=== PATIENT | male | born 1990 | race Caucasian/White ===

== ENCOUNTER → 2016-03-13 | Outpatient (CLI) | payer BC ==
--- NOTE | 2016-03-13 17:01 | DX ---
Left Foot - 3 views Indication: Pain. Technique: AP, oblique, and lateral views. Comparison: None Findings: The bones are anatomically aligned. No fracture or periosteal reaction to suggest stress re sponse. Joint spaces are well preserved. No marginal osteophytes or erosions. Impression: Negative. No acute fracture or stress response.
--- NOTE | 2016-03-13 17:10 | DX ---
Left ankle - 3 views Indication: Lateral ankle pain. Technique: AP, mortise, and lateral views. Comparison: None Findings: The bones are anatomically aligned. Joint spaces are well preserved. No fracture or bone [place]. Soft tissue planes are normal. No erosions or osteophytes. Impression: Normal. No explanation for lateral pain.
== END ==
LOC: BMCIMAGING 14:43
PROVIDERS: ATTEND Podiatrist Foot & Ankle Surgery
DX: M25.572 Pain in left ankle and joints of left foot (principal)

== ENCOUNTER 2016-10-28 14:02 | Emergency (ER) | payer BC ==
[2016-10-28 14:09] VITALS: TEMP 98.1
[2016-10-28] MEDS ORDERED: IBUPROFEN 600 MG TAB PO ONE (14:10)
[2016-10-28] MEDS ORDERED: ACETAMINOPHEN 500 MG TAB PO ONE (14:10)
--- NOTE | 2016-10-28 15:18 | EDPHY ---
H & P Time Seen by Provider: 10/28/16 15:10 HPI/ROS: CHIEF COMPLAINT: Left sided chest pain HISTORY OF PRESENT ILLNESS: The patient is a 26-year-old male presenting with acute left upper chest pain for 1.5 weeks. The pain began as a dull ache in his left upper rib and is now constant and painful to the touch. His pain is worse with inhalation. Last night the pain began to radiate to his back. He tried to go for a run today, but the pain was so severe he had to stop running. The patient denies recent trauma. No recent cough, cold, or fever. REVIEW OF SYSTEMS: A comprehensive 10 point review of systems is otherwise negative aside from elements mentioned in the history of present illness. Past Medical/Surgical History: Denies. Social History: Single. Lives in [place]. Smoking Status: Never smoked Physical Exam: General Appearance: Alert, pleasant Eyes: Pupils equal and round, no conjunctival pallor or injection ENT, Mouth: Mucous membranes moist Neck: Normal inspection Respiratory: Point tenderness over the left anterior chest wall, Lungs are clear to auscultation Cardiovascular: Regular rate and rhythm Gastrointestinal: Abdomen is soft and non-tender Chest: Left anterior chest wall tenderness. Neurological: A&O, nonfocal, normal gait Skin: Warm and dry, no rash Extremities: Nontender, no pedal edema Psychiatric: Mood and affect normal Constitutional: Initial Vital Signs Temperature (C) 36.7 C 10/28/16 14:06 Heart Rate 69 10/28/16 14:06 Respiratory Rate 18 10/28/16 14:06 Blood Pressure 112/65 10/28/16 14:06 O2 Sat (%) 98 10/28/16 14:06 O2 Delivery Mode Room Air Allergies/Adverse Reactions: No Known Allergies Allergy (Verified 10/28/16 14:09) Home Medications: Medication Instructions Recorded NK [No Known Home Meds] 10/28/16 Medical Decision Making - Diagnostics EKG Interpretation: EKG interpreted by me reveals normal sinus rhythm,probable left ventricular hypertrophy, inferior Q waves. Imaging Results: Imaging Impressions Chest X-Ray 10/28/16 14:11 Impression: Left perihilar infiltrate suspicious for bronchopneumonia.. Imaging: Discussed imaging studies w/ blending coordinator Radiologist, I viewed and interpreted images myself ED Course/Re-evaluation: The patient presents with acute left sided chest pain. According to the radiologist's report, his chest x-ray shows left perihilar infiltrate suspicious for bronchopneumonia. The patient has no associated cough, cold, or fever and I do not suspect pneumonia. On examination the patient has left anterior chest wall tenderness. He denies recent trauma. EKG reveals no evidence of ischemia, pericarditis or dysrhythmia. Plan for lab work including CBC, BMP, and D-dimer. The patient has a normal D-dimer. Perc score is negative. I feel that I can safely exclude pulmonary embolism in this patient. Lab work is otherwise unremarkable. I discussed findings with the patient. The patient does not wish to take a trial of antibiotics. Clinical scenario consistent with musculoskeletal etiology of left-sided chest pain. He will take Ibuprofen 3 times daily while the pain persists. Warning signs discussed. He will call the PCP referral tomorrow morning to arrange a follow up appointment. Differential Diagnosis: Differential diagnosis includes though it is not limited to pneumonia, pneumothorax, pulmonary embolism, aortic dissection, pericarditis, acute coronary syndrome. - Data Points Laboratory Results: Laboratory Results 10/28/16 16:05 10/28/16 16:05 10/28/16 10/28/16 10/28/16 16:05 16:05 16:05 WBC 6.61 10^3/uL 10^3/uL (3.80-9.50) RBC 5.25 10^6/uL 10^6/uL (4.40-6.38) Hgb 16.3 g/dL g/dL (13.7-17.5) Hct 48.7 % % (40.0-51.0) MCV 92.8 fL fL (81.5-99.8) MCH 31.0 pg pg (27.9-34.1) MCHC 33.5 g/dL g/dL (32.4-36.7) RDW 12.6 % % (11.5-15.2) Plt Count 294 10^3/uL 10^3/uL (150-400) MPV 9.1 fL fL (8.7-11.7) Neut % (Auto) 62.4 % % (39.3-74.2) Lymph % (Auto) 27.1 % % (15.0-45.0) [place] % (Auto) 7.4 % % (4.5-13.0) Eos % (Auto) 2.0 % % (0.6-7.6) Baso % (Auto) 0.9 % % (0.3-1.7) Nucleat RBC Rel Count 0.0 % % (0.0-0.2) Absolute Neuts (auto) 4.13 10^3/uL 10^3/uL (1.70-6.50) Absolute Lymphs (auto) 1.79 10^3/uL 10^3/uL (1.00-3.00) Absolute Monos (auto) 0.49 10^3/uL 10^3/uL (0.30-0.80) Absolute Eos (auto) 0.13 10^3/uL 10^3/uL (0.03-0.40) Absolute Basos (auto) 0.06 10^3/uL 10^3/uL (0.02-0.10) Absolute Nucleated RBC 0.00 10^3/uL 10^3/uL (0-0.01) Immature Gran % 0.2 % % (0.0-1.1) Immature Gran # 0.01 10^3/uL 10^3/uL (0.00-0.10) D-Dimer < 0.27 ug/mLFEU ug/mLFEU (0.00-0.50) Sodium 141 mEq/L mEq/L (134-144) Potassium 4.1 mEq/L mEq/L (3.5-5.2) Chloride 102 mEq/L mEq/L (97-110) Carbon Dioxide 22 mEq/l mEq/l (22-31) Anion Gap 17 mEq/L H mEq/L (8-16) BUN 10 mg/dL mg/dL (7-23) Creatinine 0.6 mg/dL L mg/dL (0.7-1.3) Estimated GFR > 60 Glucose 78 mg/dL mg/dL (70-100) Calcium 9.8 mg/dL mg/dL (8.5-10.4) Medications Given: Discontinued Medications Acetaminophen (Tylenol) 1,000 mg PO EDNOW ONE Stop: 10/28/16 14:11 Last Admin: 10/28/16 14:14 Dose: 1,000 mg Ibuprofen (Motrin) 600 mg PO EDNOW ONE Stop: 10/28/16 14:11 Last Admin: 10/28/16 14:14 Dose: 600 mg Departure - Departure Disposition: Home, Routine, Self-Care Clinical Impression: Chest wall pain Condition: Good Instructions: Chest Wall Pain (ED) Additional Instructions: I recommend taking 600mg Ibuprofen every 6-8 hours as needed for pain. You have been referred to the energy conservation specialist primary care physician. Please call to tomorrow morning to arrange a followup appointment. Return to the Emergency Department with severe chest pain, shortness of breath , fever, or worsening symptoms. Referrals: Suhail Olvera MD [Medical Doctor] - As per Instructions (blending coordinator primary care physician. ) Report Scribed for: Amanda Joseph Report Scribed by: Krystyna Toribio Date of Report: 10/28/16 Time of Report: 15:17 Physician Review and Approval Statement: 10/28/16 15:17 Portions of this note were transcribed by a medical reception. I personally performed the history, physical exam, and medical decision-making; and confirmed the accuracy of the information in the transcribed note.
--- NOTE | 2016-10-28 15:51 | CPEKG ---
Heart Rate: 66 RR Interval: 909 P-R Interval: 136 QRSD Interval: 98 QT Interval: 384 QTC Interval: 403 P [place]: 58 QRS [place]: 83 T Wave [place]: 9 EKG Severity - ABNORMAL ECG - EKG Impression: SINUS RHYTHM EKG Impression: PROBABLE LEFT VENTRICULAR HYPERTROPHY EKG Impression: INFERIOR Q WAVES, PROBABLY NORMAL VARIATION Electronically Signed By: Amanda Joseph 29-Oct-2016 21:07:52
[2016-10-28 16:09] LABS: % IMMATURE GRANULYOCYTES 0.2 % (0.0-1.1); ABSOLUTE IMMATURE GRANULOCYTES 0.01 10^3/uL (0.00-0.10); ADD DIFF? NO; ADD MORPH? NO; ADD SCAN? NO; ATYPICAL LYMPHOCYTE FLAG 10 (0-99); FRAGMENT RBC FLAG 0 (0-99); HEMATOCRIT 48.7 % (40.0-51.0); HEMOGLOBIN 16.3 g/dL (13.7-17.5); LEFT SHIFT FLG 0 (0-99); LIPEMIA HEMOLYSIS FLAG 80 (0-99); MEAN CELL HEMOGLOBIN CONCENTR. 33.5 g/dL (32.4-36.7); MEAN CELL VOLUME 92.8 fL (81.5-99.8); MEAN PLATELET VOLUME 9.1 fL (8.7-11.7); PLATELET CLUMPS FLAG 20 (0-99); PLATELET COUNT 294 10^3/uL (150-400); RED BLOOD CELL COUNT 5.25 10^6/uL (4.40-6.38); RED CELL DISTRIBUTION WIDTH 12.6 % (11.5-15.2)
[2016-10-28 16:20] LABS: ANION GAP 17 mEq/L (8-16); CALCIUM 9.8 mg/dL (8.5-10.4); CARBON DIOXIDE 22 mEq/l (22-31); CHLORIDE 102 mEq/L (97-110); CREATININE 0.6 mg/dL (0.7-1.3); GLOMERULAR FILTRATION RATE > 60; GLUCOSE 78 mg/dL (70-100); POTASSIUM 4.1 mEq/L (3.5-5.2); SODIUM 141 mEq/L (134-144)
[2016-10-28 17:17] VITALS: BP 121/77; PULSE 61; RESP 16; O2SAT 99
--- NOTE | 2016-10-29 08:53 | CPEKG ---
Heart Rate: 72 RR Interval: 833 P-R Interval: 136 QRSD Interval: 98 QT Interval: 388 QTC Interval: 425 P [place]: 58 QRS [place]: 79 T Wave [place]: 6 EKG Severity - ABNORMAL ECG - EKG Impression: SINUS RHYTHM EKG Impression: PROBABLE LEFT VENTRICULAR HYPERTROPHY EKG Impression: INFERIOR Q WAVES, PROBABLY NORMAL VARIATION Electronically Signed By: Amanda Joseph 29-Oct-2016 21:07:38
== END 2016-10-28 17:15 | disposition home or self-care (01) ==
DX: R07.89 Other chest pain (principal)